=== PATIENT | female | born 1960 | race Caucasian/White ===

== ENCOUNTER → 2016-12-30 | Outpatient (CLI) | payer BC ==
[~2016-12-30] MED LIST: ASPIRIN 81M81 MG/TA2 PO; CALCIUM PO; CENTRUM KIDS PO; CLARITIN 1010 MG/TAB PO; MVI PO; VASOTEC 2.2.5 MG/TAB PO; VITAMIN D1000 IU PO; ZANTAC 150MG T150 MG PO
== END ==
LOC: MC.RAD 11:14
DX: Z12.31 Encounter for screening mammogram for malignant neoplasm of breast (principal)

== ENCOUNTER → 2018-05-17 | Outpatient (CLI) | payer BC | LOC: MC.RAD 14:00 | DX: Z12.31 Encounter for screening mammogram for malignant neoplasm of breast (principal) ==